=== PATIENT | male | born 1985 | race Caucasian/White ===

== ENCOUNTER 2018-06-25 14:50 | Emergency (ER) | payer OTHER, SELFPAY ==
[~2018-06-25] VITALS: Ht 182.9 cm; Wt 90.6 kg
[2018-06-25 14:58] VITALS: BP 137/87
== END 2018-06-25 15:33 | disposition home or self-care (01) ==
LOC: ED 15:27
DX: L02.01 Cutaneous abscess of face (principal)
CPT/HCPCS: 99283

== ENCOUNTER 2018-12-06 02:06 | Emergency (ER) | payer SELFPAY ==
[~2018-12-06] VITALS: Ht 182.9 cm; Wt 92.8 kg
[2018-12-06 02:08] VITALS: BP 136/69
[2018-12-06] MEDS ORDERED: PROPARACAINE OPHTH 0.5%, 15ML RIGHTEYE ONE (03:00)
[2018-12-06] MEDS ORDERED: LIDOCAINE-MPF 1%, 5ML ONE (03:16)
[2018-12-06] MEDS ORDERED: LIDOCAINE 1%, 10ML INFIL ONE (03:30)
--- NOTE | 2018-12-06 03:54 | NUR ---
Patient/Caregiver given discharge instructions and they have confirmed that they understand the instructions. Patient ambulatory with steady gait.
== END 2018-12-06 03:56 | disposition home or self-care (01) ==
LOC: ED 03:50
DX: T15.01XA Foreign body in cornea, right eye, initial encounter (principal); L02.31 Cutaneous abscess of buttock; X58.XXXA Exposure to other specified factors, initial encounter; Y93.89 Activity, other specified; Y92.89 Other specified places as the place of occurrence of the external cause; Y99.8 Other external cause status
CPT/HCPCS: 10060; 65220; 99284

== ENCOUNTER 2020-02-23 10:56 | Emergency (ER) | payer SELFPAY ==
[~2020-02-23] VITALS: Ht 182.9 cm; Wt 100.5 kg
[2020-02-23 11:09] VITALS: BP 168/82
== END 2020-02-23 12:49 | disposition home or self-care (01) ==
LOC: ED 12:35
DX: G56.03 Carpal tunnel syndrome, bilateral upper limbs (principal); M25.532 Pain in left wrist; M25.531 Pain in right wrist; M79.642 Pain in left hand; M79.641 Pain in right hand
CPT/HCPCS: 99284